=== PATIENT | female | born 1990 | race Caucasian/White ===

== ENCOUNTER → 2018-10-03 | Outpatient (REF) | payer OTHER ==
[~2018-10-03] MED LIST: ACET1TAB16; ACET500L PO; ANUS2.5C2 PR; DOCU5LIQ PO; IBUP600T; IBUP600T26 PO; MAPA500T17 PO
== END ==
LOC: M LAB REF 13:45
PROVIDERS: ATTEND Advanced Practice Midwife
DX: Z12.4 Encounter for screening for malignant neoplasm of cervix (principal)

== ENCOUNTER → 2018-11-12 | Outpatient (CLI) | payer OTHER ==
[2018-11-12 13:36] LABS: BASO % 0.4 % (0.0-1.0); EOS # 0.1 10^3/uL (0.0-0.50); EOS % 1.6 % (0.0-3.0); HEMATOCRIT 37.4 % (36.0-47.0); HEMOGLOBIN 12.6 g/dl (12.0-15.5); LYMPH # 2.2 10^3/uL (1.5-6.5); MEAN CORPUSCULAR HGB CONC 33.7 g/dl (32.0-36.5); MONO # 0.8 10^3/uL (0.0-0.8); MONO % 9.9 % (0.0-5.0); NEUTROPHILS # 5.2 10^3/uL (1.8-7.7); NEUTROPHILS % 61.6 % (36.0-66.0); PLATELET COUNT, AUTOMATED 346 10^3/uL (150-450); RED BLOOD COUNT 4.35 10^6/uL (4.00-5.40); WHITE BLOOD COUNT 8.4 10^3/uL (4.0-10.0)
[2018-11-12 14:41] LABS: HEPATITIS C VIRUS ABY INDEX 0.1 INDEX (<0.8); HIV 1&2 SCREEN CENTAUR NEGATIVE (NEGATIVE); RUBELLA IgG QUALITATIVE IMMUNE (IMMUNE)
[2018-11-12 16:41] LABS: CHLAMYDIA DNA AMPLIFICATION NEGATIVE (NEGATIVE); GC DNA AMPLIFICATION NEGATIVE (NEGATIVE)
== END ==
LOC: M SMT 11:58
PROVIDERS: ATTEND Advanced Practice Midwife
DX: Z34.81 Encounter for supervision of other normal pregnancy, first trimester (principal); Z3A.00 Weeks of gestation of pregnancy not specified

== ENCOUNTER → 2018-12-14 | Outpatient (CLI) | payer OTHER | LOC: M LAB 11:38 | PROVIDERS: ATTEND Advanced Practice Midwife | DX: Z34.81 Encounter for supervision of other normal pregnancy, first trimester (principal); Z36.89 Encounter for other specified antenatal screening ==

== ENCOUNTER → 2019-02-16 | Outpatient (CLI) | payer OTHER ==
--- NOTE | 2019-02-17 06:02 | REP ---
Clinical: Anatomical evaluation. Comparison: None . Findings: Examination demonstrates a single live intrauterine in transverse (head to maternal right) presentation. motion is identified by technologist. Placenta is noted anterior and grade zero without evidence for placenta previa or abruption. Amniotic fluid volume is normal. Cervix measures 3.7 cm in length and appears closed. No evidence for nuchal cord. Gestational age by LMP 20 weeks 4 days with RENE 07/02/2019 . Gestational age by current measurements 20 weeks 3 days with RENE 07/03/2019 . FHR equals 149 beats per minute. BPD 4.9 cm 21 weeks 0 days HC 18.1 cm 20 weeks 3 days AC 15.3 cm 20 weeks 3 days FL 3.3 cm 20 weeks 2 days HL 3.1 cm 20 weeks 2 days HC/AC ratio 1.18 Estimated weight 352 grams ( 40th percentile). Anatomical assessment demonstrates normal structures including cranium, choroid plexus, cavum, cerebellum/posterior fossa, facial features, lungs, four-chamber heart/right ventricular outflow tract, diaphragm, stomach, cord insertion/three-vessel cord, kidneys/bladder, and extremities. Impression: Single live intrauterine in transverse lie demonstrating appropriate interval growth. Limited evaluation of the left cardiac ventricular outflow tract and spine. Remainder of the anatomical assessment is complete and normal. Electronically Signed by Alvin Andrade MD 02/17/2019 05:53 A
== END ==
LOC: M RAD 11:16
PROVIDERS: ATTEND Advanced Practice Midwife
DX: Z34.82 Encounter for supervision of other normal pregnancy, second trimester (principal)

== ENCOUNTER → 2019-04-03 | Outpatient (CLI) | payer OTHER ==
--- NOTE | 2019-04-03 12:28 | REP ---
Clinical: Anatomical evaluation. Comparison: 02/16/2019 . Findings: Examination demonstrates a single live intrauterine in variable presentation. motion is identified by technologist. Placenta is noted anterior and grade I I without evidence for placenta previa or abruption. Amniotic fluid volume is normal. Cervix measures 4.1 cm in length and appears closed. No evidence for nuchal cord. Gestational age by LMP 27 weeks 1 day with RENE 07/02/2019 . Gestational age by current measurements 27 weeks 3 days with RENE 06/30/2019 . FHR equals 137 beats per minute. Estimated weight 1030 grams ( 43rd percentile). Amniotic fluid index: 18.9 cm (9.5 - 22.6) Anatomical assessment demonstrates normal structures including cranium, choroid plexus, cavum, cerebellum/posterior fossa, facial features, lungs, four-chamber heart/ventricular outflow tracts, diaphragm, stomach, cord insertion/three-vessel cord, kidneys/bladder, spine, and extremities. Impression: Single live intrauterine in variable presentation demonstrating appropriate interval growth. 2. Anatomical assessment is complete and normal. Electronically Signed by Alvin Andrade MD 04/03/2019 12:20 P
== END ==
LOC: M RAD 10:49
PROVIDERS: ATTEND Advanced Practice Midwife
DX: Z34.92 Encounter for supervision of normal pregnancy, unspecified, second trimester (principal)

== ENCOUNTER → 2019-04-09 | Outpatient (CLI) | payer BC ==
[2019-04-09 13:19] LABS: HEMATOCRIT 34.9 % (36.0-47.0); MEAN CORPUSCULAR HEMOGLOBIN 28.6 pg (27.0-33.0); MEAN CORPUSCULAR HGB CONC 31.5 g/dl (32.0-36.5); MEAN CORPUSCULAR VOLUME 90.6 fl (80.0-96.0); PLATELET COUNT, AUTOMATED 252 10^3/uL (150-450); RED BLOOD COUNT 3.85 10^6/uL (4.00-5.40); WHITE BLOOD COUNT 10.3 10^3/uL (4.0-10.0)
[2019-04-11 00:08] LABS: ANTI PARVO VIRUS LEVEL IgM 0.1 index (0.0-0.8)
== END ==
LOC: M LAB 11:07
PROVIDERS: ATTEND Advanced Practice Midwife
DX: Z34.92 Encounter for supervision of normal pregnancy, unspecified, second trimester (principal); Z3A.00 Weeks of gestation of pregnancy not specified

== ENCOUNTER → 2019-04-27 | Outpatient (CLI) | payer BC | LOC: M LAB 07:35 | PROVIDERS: ATTEND Advanced Practice Midwife | DX: O99.810 Abnormal glucose complicating pregnancy (principal) ==

== ENCOUNTER → 2019-06-09 | Outpatient (REF) | payer BC | LOC: M SFHCWAGY 11:58 | PROVIDERS: ATTEND Advanced Practice Midwife | DX: Z36.85 Encounter for antenatal screening for Streptococcus B (principal) ==

== ENCOUNTER → 2019-06-25 | Outpatient (CLI) | payer BC ==
[2019-06-25 17:33] LABS: HEMATOCRIT 35.4 % (36.0-47.0); HEMOGLOBIN 11.4 g/dl (12.0-15.5); MEAN CORPUSCULAR HEMOGLOBIN 27.9 pg (27.0-33.0); MEAN CORPUSCULAR HGB CONC 32.2 g/dl (32.0-36.5); MEAN CORPUSCULAR VOLUME 86.8 fl (80.0-96.0); PLATELET COUNT, AUTOMATED 217 10^3/uL (150-450); RED BLOOD COUNT 4.08 10^6/uL (4.00-5.40); WHITE BLOOD COUNT 11.7 10^3/uL (4.0-10.0)
[2019-06-25 17:54] LABS: TOTAL PROTEIN,RANDOM URINE 34.9 MG/DL (0.0-12.0)
[2019-06-25 18:00] LABS: ALT/SGPT 14 U/L (12-78); BILIRUBIN,TOTAL 0.2 MG/DL (0.2-1.0); CREATININE FOR GFR 0.68 MG/DL (0.55-1.30); GLOMERULAR FILTRATION RATE > 60.0 (>60); LDH LACTATE DEHYDROGENASE 178 U/L (84-246); URIC ACID 4.2 MG/DL (2.6-6.0)
== END ==
LOC: M LAB 15:46
PROVIDERS: ATTEND Advanced Practice Midwife
DX: O16.3 Unspecified maternal hypertension, third trimester (principal)

== ENCOUNTER 2019-06-26 13:46 | Inpatient (IN) | payer BC ==
[~2019-06-26] VITALS: Ht 157.5 cm; Wt 77.7 kg
[2019-06-26] MEDS ORDERED: LR 1,000 ML IV SCH (14:11)
[2019-06-26] MEDS ORDERED: LACTATED RINGER'S 1000 ML IV STA (14:11)
[2019-06-26 15:13] LABS: HEMATOCRIT 33.3 % (36.0-47.0); HEMOGLOBIN 11.2 g/dl (12.0-15.5); MEAN CORPUSCULAR HEMOGLOBIN 28.8 pg (27.0-33.0); MEAN CORPUSCULAR HGB CONC 33.6 g/dl (32.0-36.5); MEAN CORPUSCULAR VOLUME 85.6 fl (80.0-96.0); PLATELET COUNT, AUTOMATED 234 10^3/uL (150-450); RED BLOOD COUNT 3.89 10^6/uL (4.00-5.40); WHITE BLOOD COUNT 12.1 10^3/uL (4.0-10.0)
[2019-06-26 15:39] LABS: ALT/SGPT 14 U/L (12-78); BILIRUBIN,TOTAL 0.2 MG/DL (0.2-1.0); CREATININE FOR GFR 0.67 MG/DL (0.55-1.30); GLOMERULAR FILTRATION RATE > 60.0 (>60); LDH LACTATE DEHYDROGENASE 238 U/L (84-246); URIC ACID 4.3 MG/DL (2.6-6.0)
[2019-06-26] MEDS ORDERED: miSOPROStol 50 MCG 1/2 TAB (S0191) PO ONE (16:30)
--- NOTE | 2019-06-26 16:40 | HPEPDOC ---
Obstetrical History & Physical General Date of Admission Jun 26, 2019 at 13:46 Primary Care Physician: JESSICA BARAHONA CNM Antepartum Course Diagnos(e)s GHTN Past Medical History Allergies Coded Allergies: No Known Allergies (Verified , 11/28/07) Medications Scheduled Hydrocortisone (Anusol-Hc) 2.5 % Cre, 2.5 % ID Q4H for DISCOMFORT Ibuprofen (Motrin, Advil) 600 Mg Tab, 600 MG PO Q6 for MODERATE PAIN (PS 5-7) Scheduled PRN Acetaminophen (Tylenol) 500 Mg Tab, 500 MG PO Q6 PRN for MILD PAIN (PS 1-4) Docusate Sodium (Colace Liquid) 100 Mg/10 Ml Liqd, 100 MG PO once a day PRN for BOWEL CARE/CONSTIPATION Physical Examination Physical Examination GENERAL: Alert and oriented times three. BREAST: . ABDOMEN: Gravid and non-tender to touch. FETUS: Is vertex (VTX) by sterile vaginal examination (SVE), fetus is vertex (VTX) by Bertin. HEART RATE: Regular rate and rhythm. LUNGS: Clear to auscultation (CTA). EXTREMITIES: No edema. No clonus. Deep tendon reflexes (DTRs) + . Laboratory Data 24H LABS Laboratory Tests 2 06/26/19 14:01: Serology Scanned Report Hepatitis B Testing 06/26/19 15:00: Nucleated Red Blood Cells % (auto) 0.0, Glomerular Filtration Rate > 60.0, Uric Acid 4.3, Total Bilirubin 0.2, Aspartate Amino Transf (AST/SGOT) 22, Alanine Aminotransferase (ALT/SGPT) 14, Lactate Dehydrogenase 238, Syphilis Serology NONREACTIVE CBC/BMP Laboratory Tests 06/26/19 15:00 Assessment/Plan Assessment IUP at 39 weeks gestation TN Category I FHR tracing GBS negative Plan Admit and orient. Airport Guide and consent. Diet: . Group B Streptococcus (GBS) [negative]. Labs and intravenous (IV) per unit protocol. Counseled on Pitocin and induction of labor (IOL). Lactated Ringers (LR): Bolus mL, then at mL/hr. Anticipate [normal spontaneous delivery ()]. C-S as appropriate. JESSICA BARAHONA CNM Jun 26, 2019 16:40
[2019-06-26 19:03] VITALS: BP 129/87
--- NOTE | 2019-06-26 20:11 | HPEPDOC ---
Obstetrical History & Physical General Date of Admission Jun 26, 2019 at 13:46 Primary Care Physician: JESSICA BARAHONA CNM History of Present Illness Patient is a 29-year-old female who is a at 39.1 weeks gestation with an RENE of 07/02/19 based off of her first trimester of ultrasound. She initiated care in her first trimester with [facility]. Her has been uncomplicated until 39 weeks when she was diagnosed with GHTN. She presents to L&D for IOL for GHTN. She denies preeclamptic symptoms. She denies leaking of fluid or vaginal bleeding. Reports active movement and occasional contractions. Chief Complaint: Gestational Hypertension, Induction of labor Information Provided By: Patient Age: 29 : 2 Term: 1 Pre-term: 0 Abortions: 0 Livin Care Care: Good Care Dating Final EDC: Jul 02, 2019 Final EDC by: 1st trimester (US) EGA at Admission: 39.1 Antepartum Course Diagnos(e)s GHTN Height (inches): 62 Past Medical History Past Obstetrical History : Past Obstetrical History: Primgravida Gestation: 40.4 Type of Delivery: Spontaneous Vaginal Del. 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 pertinent history Past Medical History Medical History Asthma Surgical History: Tonsilectomy Family History Significant Family History: Other (anxiety, Crohn's, depression, bipolar) Social History Marital Status: Family situation: Spouse/partner home Psychosocial History: No pertinent psych hx * Smoker: non-smoker Alcohol: Denies Drugs: denies Abuse Violence Screening Have you been hit/kicked/slapp: No Have you been sexually assault: No Imunizations Tdap status: current Allergies Coded Allergies: No Known Allergies (Verified , 11/28/07) Medications Scheduled Hydrocortisone (Anusol-Hc) 2.5 % Cre, 2.5 % [place] Q4H for DISCOMFORT Ibuprofen (Motrin, Advil) 600 Mg Tab, 600 MG PO Q6 for MODERATE PAIN (PS 5-7) Scheduled PRN Acetaminophen (Tylenol) 500 Mg Tab, 500 MG PO Q6 PRN for MILD PAIN (PS 1-4) Docusate Sodium (Colace Liquid) 100 Mg/10 Ml Liqd, 100 MG PO once a day PRN for BOWEL CARE/CONSTIPATION Physical Examination Physical Examination GENERAL: Alert and oriented times three. BREAST: . ABDOMEN: Gravid and non-tender to touch. FETUS: Is vertex (VTX) by sterile vaginal examination (SVE), fetus is vertex (VTX) by Bertin. HEART RATE: Regular rate and rhythm. LUNGS: Clear to auscultation (CTA). EXTREMITIES: No edema. No clonus. Deep tendon reflexes (DTRs) + 2. Vital Signs/I&O Vital Signs Date Time Temp Pulse Resp B/P (MAP) Pulse Ox O2 Delivery O2 Flow Rate FiO2 06/26/19 19:03 97.3 102 16 129/87 (101) Laboratory Data 24H LABS Laboratory Tests 2 06/26/19 14:01: Serology Scanned Report Hepatitis B Testing 06/26/19 15:00: Nucleated Red Blood Cells % (auto) 0.0, Glomerular Filtration Rate > 60.0, Uric Acid 4.3, Total Bilirubin 0.2, Aspartate Amino Transf (AST/SGOT) 22, Alanine Aminotransferase (ALT/SGPT) 14, Lactate Dehydrogenase 238, Syphilis Serology NONREACTIVE CBC/BMP Laboratory Tests 06/26/19 15:00 Urine Culture: No Growth Pertinent Laboratoy Data Blood Type: A+ RBC Antibody Screen: Negative HIV: Negative Hepatitis B: Negative Hepatitis C: Negative Rapid Plasma Reagin: Nonreactive Rubella: Immune Chlamydia/Gonorrhea: Negative Group B Streptococcus: Negative Glucose Tolerance Test: 137 Vaginal Examination Dilation: 2cm Effacement: other (75%) Station: -2 Cervical Consistency: Soft Cervical Position: Anterior Presentation: Cephalic presentation Position: Vertex (occiput) Assessment Heart Rate (FHR): 140 Variability: Moderate Accelerations: Positive Decelerations: None Tocometer Contractions: Yes Frequency: other (2 to 7 minutes) Multi-drug resistant Organism: No history of MDRO Assessment/Plan Assessment IUP at 39.1 weeks gestation GHTN GBS negative Category I FHR tracing. Plan Admit to L&D per recommendation of Dr. Burks. ZoraidaOB ad ori Diet: regular then clears once she is switched to IV Pitocin. Group B Streptococcus (GBS) negative. Labs and intravenous (IV) per unit protocol. Counseled on Cytotec, bowman bulb and Pitocin for induction of labor. Anesthesia consult per patient's request. Lactated Ringers (LR): Bolus 800 mL, then at 125 mL/hr. Anticipate cervical ripening and . . C-S as appropriate. JESSICA BARAHONA CNM Jun 26, 2019 20:11
[2019-06-26] MEDS ORDERED: OXYTOCIN DRIP 30 UNITS in IV 1 EA IV SCH (21:00)
[2019-06-26] MEDS ORDERED: BUTORPHANOL 2 MG/ML INJ (J0595) IV ONE (22:15)
[2019-06-26] MEDS ORDERED: PROMETHAZINE INJ 25 MG/ML VIAL (J2550) IV ONE (22:15)
[2019-06-27] MEDS ORDERED: OXYTOCIN DRIP 30 UNITS in IV 1 EA IV SCH (00:38)
[2019-06-27] MEDS ORDERED: DOCUSATE SODIUM 100 MG CAP PO PRN (00:45)
[2019-06-27] MEDS ORDERED: DIBUCAINE 1% OINTMENT 30GM TOP PRN (00:45)
[2019-06-27] MEDS ORDERED: ACETAMINOPHEN TAB 650MG DOSE (2X325MG) PO PRN (00:45)
[2019-06-27] MEDS ORDERED: RHOGAM 300 MCG (1500 IU) INJ (J2790) IM SCH (00:45)
[2019-06-27] MEDS ORDERED: ANUSOL HC CREAM 30GM TOP PRN (00:45)
[2019-06-27] MEDS ORDERED: ACETAMINOPHEN 500 MG TAB PO PRN (00:45)
[2019-06-27] MEDS ORDERED: METHYLERGONOVINE MALEATE 0.2 MG TAB PO PRN (00:45)
[2019-06-27] MEDS ORDERED: IBUPROFEN 600 MG TAB PO PRN (00:45)
[2019-06-27] MEDS ORDERED: MEASLES,MUMPS,RUBELLA VACCINE INJ (MMR-II) (90707) SC SCH (00:45)
--- NOTE | 2019-06-27 00:45 | DNPDOC ---
[facility] Delivery Note Delivery Note DATE OF DELIVERY: 06/27/2019 at 0016 PREDELIVERY DIAGNOSIS: 39-1/7 weeks' gestation and labor. POST DELIVERY DIAGNOSIS: Delivered. PROCEDURE: Spontaneous vaginal delivery. PEN TESTER: Jessica Flores CNM, NOÉ ANESTHESIA: none ESTIMATED BLOOD LOSS: 200 mL. FINDINGS: 6 pounds 15 oz; 3150 grams; male infant, Score 8/9, GHTN. DELIVERY SUMMARY: Patient is a 29-year-old female who is now a who presented to L&D for and IOL for GHTN. She received 1 dose of cytotec and IV Pitocin for induction of labor. She used a dose of Stadol and Phenergan for pain management. The patient spontaneously ruptured at 2201 to a moderate amount of clear fluid and progressed to fully dilated at 2355. She pushed to a living male in the OA position with restitution to ROT at 0016. The anterior shoulder delivered with ease and the corpus immediately followed. The baby was placed on the maternal abdomen active and crying. The cord was clamped x2 after pulsation ceased and cut by the FOB. A 3-vessel cord was noted. The placenta delivered spontaneously and intact at 0021. Uterine hemostasis was achieved via rapid infusion of IV Pitocin and fundal massage. The vagina, perineum, and cervix was inspected and found to be intact. Both mom and baby are in stable condition. All counts of instruments and sponges are correct. JESSICA FLORES CNM Jun 27, 2019 00:45
[2019-06-27 03:15] VITALS: BP 109/68
[2019-06-27 06:00] VITALS: BP 122/68
[2019-06-27] MEDS: PRENATAL VITAMINS CHEWABLE TABLET PO SCH (08:27)
[2019-06-27] MEDS: IBUPROFEN 800 MG TAB PO PRN (08:28)
[2019-06-27 10:00] VITALS: BP 121/77
[2019-06-27 18:00] VITALS: BP 118/60
[2019-06-28 06:00] VITALS: BP 136/81
--- NOTE | 2019-06-28 07:56 | IPNPDOC ---
Progress Note Date of Service: Jun 28, 2019 Day#: 1 Progress Note SUBJECT: Doing well without complaints. Ambulating, voiding and pain is well-c ontrolled. Reports minimal lochia. OBJECTIVE: VITAL SIGNS: Within normal limits, afebrile. Alert and oriented times three. Abdomen: Fundus firm at U-2. Soft, NTTP. Ext: neg calf tenderness. ASSESSMENT: day #1 status post normal spontaneous vaginal delivery. Recovering in stable condition. PLAN: 1. Continue routine care 2. Discharge plans for tomorrow VS, I&O, 24H, Fishbone Vital Signs/I&O Vital Signs Date Time Temp Pulse Resp B/P (MAP) Pulse Ox O2 Delivery O2 Flow Rate FiO2 06/28/19 06:00 97.9 77 18 136/81 (99) 06/27/19 18:00 Room Air IAN VIEIRA MD. Jun 28, 2019 07:56
[2019-06-28] MEDS: PRENATAL VITAMINS CHEWABLE TABLET PO SCH (10:44)
[2019-06-28] MEDS: IBUPROFEN 800 MG TAB PO PRN (10:44)
== END 2019-06-28 11:30 | disposition home or self-care (01) | DRG 560 ==
LOC: M LDI 13:46 → M OBS 06-27 02:20
PROVIDERS: ADMIT Advanced Practice Midwife; ATTEND Advanced Practice Midwife
PROC: 3E0P7GC Introduction of Other Therapeutic Substance into Female Reproductive, Via Natural or Artificial Opening (ICD-10-PCS; 2019-06-26)
PROC: 10E0XZZ Delivery of Products of Conception, External Approach (ICD-10-PCS; principal; 2019-06-27)
DX: O13.4 Gestational [pregnancy-induced] hypertension without significant proteinuria, complicating childbirth (principal); Z3A.39 39 weeks gestation of pregnancy; Z37.0 Single live birth

== ENCOUNTER → 2020-07-27 | Outpatient (REF) | payer BC | LOC: M PLALAB 10:01 | PROVIDERS: ATTEND Advanced Practice Midwife | DX: Z36.89 Encounter for other specified antenatal screening (principal) ==

== ENCOUNTER → 2020-07-29 | Outpatient (CLI) | payer BC | LOC: M LAB 16:33 | PROVIDERS: ATTEND Advanced Practice Midwife | DX: Z34.90 Encounter for supervision of normal pregnancy, unspecified, unspecified trimester (principal) ==

== ENCOUNTER → 2020-09-07 | Outpatient (CLI) | payer BC | LOC: M PLALAB 10:03 | PROVIDERS: ATTEND Advanced Practice Midwife | DX: Z34.81 Encounter for supervision of other normal pregnancy, first trimester (principal) ==

== ENCOUNTER → 2020-09-16 | Outpatient (REF) | payer BC ==
[2020-09-16 17:36] LABS: HEMATOCRIT 36.2 % (36.0-47.0); HEMOGLOBIN 12.2 g/dl (12.0-15.5); MEAN CORPUSCULAR HEMOGLOBIN 29.3 pg (27.0-33.0); MEAN CORPUSCULAR HGB CONC 33.7 g/dl (32.0-36.5); PLATELET COUNT, AUTOMATED 282 10^3/uL (150-450); RED BLOOD COUNT 4.16 10^6/uL (4.00-5.40); WHITE BLOOD COUNT 9.9 10^3/uL (4.0-10.0)
[2020-09-16 18:56] LABS: HEPATITIS C VIRUS ABY INDEX < 0.0 INDEX (<0.8); HIV 1&2 SCREEN CENTAUR NEGATIVE (NEGATIVE)
== END ==
LOC: M PLALAB 14:11
PROVIDERS: ATTEND Advanced Practice Midwife
DX: Z36.89 Encounter for other specified antenatal screening (principal)

== ENCOUNTER → 2020-10-14 | Outpatient (REF) | payer BC | LOC: M SFHCWAGY 13:03 | PROVIDERS: ATTEND Advanced Practice Midwife | DX: Z36.89 Encounter for other specified antenatal screening (principal) ==

== ENCOUNTER → 2020-11-18 | Outpatient (CLI) | payer BC ==
--- NOTE | 2020-11-18 09:40 | REP ---
INDICATION: ANATOMY. COMPARISON: None. TECHNIQUE: Transabdominal scanning FINDINGS: Multiple ultrasonographic images of the gravid uterus shows a single living intrauterine gestation in the cephalic presentation. Doppler interrogation of the heart shows a heart rate of 149 beats per minute. The placenta is anterior and not low-lying. The cervix measures 3.9 cm in length and is closed. The subjective amniotic fluid volume is within normal limits. BPD: 5 cm 21 weeks 0 days HC: 19.2 cm 21 weeks 3 days AC: 16.6 cm 21 weeks 4 days FL: 3.7 cm 21 weeks 4 days The estimated weight is 434 g which is at the 44th percentile for a 21 week 4 day gestational age. anatomical structures seen to be unremarkable are as follows: Thalami, cavum septum pellucidum, cerebellum, cisterna magna, cerebral ventricles, spine, kidneys, urinary bladder, cord insertion, three-vessel umbilical cord, upper lip, upper and lower extremities, four-chamber heart, and ventricular outflow tracts IMPRESSION: Single living intrauterine gestation as described above with an estimated gestational age of 21 weeks 3 days via composite criteria and an estimated date of delivery of 03/28/2021 by today's exam. No anomalies were detected. <Electronically signed by Trevon Zhu > 11/18/20 0937
== END ==
LOC: M WHC 08:18
PROVIDERS: ATTEND Advanced Practice Midwife
DX: Z34.82 Encounter for supervision of other normal pregnancy, second trimester (principal); Z3A.21 21 weeks gestation of pregnancy

== ENCOUNTER → 2021-01-09 | Outpatient (CLI) | payer BC ==
[2021-01-09 14:04] LABS: HEMATOCRIT 34.6 % (36.0-47.0); HEMOGLOBIN 11.2 g/dl (12.0-15.5); MEAN CORPUSCULAR HEMOGLOBIN 28.7 pg (27.0-33.0); MEAN CORPUSCULAR HGB CONC 32.4 g/dl (32.0-36.5); MEAN CORPUSCULAR VOLUME 88.7 fl (80.0-96.0); PLATELET COUNT, AUTOMATED 241 10^3/uL (150-450); WHITE BLOOD COUNT 10.9 10^3/uL (4.0-10.0)
== END ==
LOC: M LAB 12:10
PROVIDERS: ATTEND Advanced Practice Midwife
DX: Z34.82 Encounter for supervision of other normal pregnancy, second trimester (principal)

== ENCOUNTER → 2021-01-30 | Outpatient (CLI) | payer BC | LOC: M LAB 08:48 | PROVIDERS: ATTEND Advanced Practice Midwife | DX: Z36.89 Encounter for other specified antenatal screening (principal); O99.810 Abnormal glucose complicating pregnancy ==

== ENCOUNTER 2021-02-28 12:25 | Outpatient (CLI) | payer BC ==
[~2021-02-28] VITALS: Ht 157.5 cm; Wt 100.2 kg
[2021-02-28 12:21] VITALS: BP 97/62
[~2021-02-28 12:25] MED LIST changes: +ACET-683 PO; +ACETAMINOPHEN TAB 650MG DOSE (2X325MG) PO PRN; +ALBUTEROL 90 MCG/ACT 8GM HFA INHALER INH PRN; +ALBUTEROL SULFATE 2.5 MG/0.5 ML INH NEB SOLN INH PRN; +CASIRIVIMAB (REGN10933) 600 MG, IMDEVIMAB (REGN10987) 600 MG in NS 250 ML IV ONE; +CASIRIVIMAB/IMDEVIMAB 1,200 MG in NS 250 ML IV ONE; +COLA100C5 PO; +EPINEPHrine INJ 1 MG/ML 1ML AMP IM PRN; +FERR1TAB8 PO; +NS 1,000 ML IV SCH; +PRENCHW PO; +diphenhydrAMINE 50MG/ML VIAL (J1200) IV PRN; +methylPREDNISolone 125MG 2ML VIAL IV PRN
[2021-02-28 12:51] VITALS: BP 110/68
[2021-02-28 13:25] VITALS: BP 108/78
[2021-02-28 14:26] VITALS: BP 110/80
== END 2021-02-28 14:35 | disposition home or self-care (01) ==
LOC: M 4MAIN 12:25 → M OPCLI4PR 12:25 → M OPCLI4 12:55 → M OPCLI4PR 14:35
PROVIDERS: ATTEND Internal Medicine
DX: U07.1 COVID-19 (principal)

== ENCOUNTER 2021-03-20 19:59 | Inpatient (IN) | payer BC ==
[~2021-03-20] VITALS: Ht 157.5 cm; Wt 74.2 kg
[~2021-03-20 19:59] MED LIST changes: -ACETAMINOPHEN TAB 650MG DOSE (2X325MG) PO PRN; -ALBUTEROL 90 MCG/ACT 8GM HFA INHALER INH PRN; -ALBUTEROL SULFATE 2.5 MG/0.5 ML INH NEB SOLN INH PRN; -CASIRIVIMAB (REGN10933) 600 MG, IMDEVIMAB (REGN10987) 600 MG in NS 250 ML IV ONE; -CASIRIVIMAB/IMDEVIMAB 1,200 MG in NS 250 ML IV ONE; -EPINEPHrine INJ 1 MG/ML 1ML AMP IM PRN; -NS 1,000 ML IV SCH; -diphenhydrAMINE 50MG/ML VIAL (J1200) IV PRN; -methylPREDNISolone 125MG 2ML VIAL IV PRN
--- OUTSIDE RECORDS SUMMARY | 2021-03-20 20:03 | CCD ---
Author Author [facility] Organization [facility] Address Unknown Phone Unavailable Support Name Relationship Address Phone GINGER AMAYA Next Of Kin [address] [place] [address] [employer] Next Of Kin [address] [place] [address] RUBENS CASTILLO Next Of Kin [address] [place] [address] UE Next Of Kin Unknown Unavailable ST Next Of Kin Unknown Unavailable YANIQUE VILLALOBOS Next Of Kin [address] [place] [address] KLAUS VILLALOBOS Next Of Kin [address] [place] [address] AMAYA MILES ECON [address] [place] [address] Unavailable Re-disclosure Warning The records that you are about to access may contain information from federally-assisted alcohol or drug abuse programs. If such information is present, then the following federally mandated warning applies: This information has been disclosed to you from records protected by federal confidentiality rules (42 CFR part 2). The federal rules prohibit you from making any further disclosure of this information unless further disclosure is expressly permitted by the written consent of the person to whom it pertains or as otherwise permitted by 42 CFR part 2. A general authorization for the release of medical or other information is NOT sufficient for this purpose. The Federal rules restrict any use of the information to criminally investigate or prosecute any alcohol or drug abuse patient.The records that you are about to access may contain highly sensitive health information, the redisclosure of which is protected by Article 27-F of the [facility] Public Health law. If you continue you may have access to information: Regarding HIV / AIDS; Provided by facilities licensed or operated by the [facility] Office of Mental Health; or Provided by the [facility] Office for People With Developmental Disabilities. If such information is present, then the following [facility] mandated warning applies: This information has been disclosed to you from confidential records which are protected by state law. State law prohibits you from making any further disclosure of this information without the specific written consent of the person to whom it pertains, or as otherwise permitted by law. Any unauthorized further disclosure in violation of state law may result in a fine or skilled nursing sentence or both. A general authorization for the release of medical or other information is NOT sufficient authorization for further disc losure. Medications No Information Insurance Providers Payer name Policy type / Coverage type Policy ID Covered libertarian ID Covered libertarian's relationship to najera Policy Najera Plan Information [employer] [place]/307 [id number] SP [id number] [employer] [place]/307 [id number] SP [id number] [place] [place] 302/307 [id number] SP [id number] [facility] [id number] SP [id number] [facility] [id number] SP [id number] [employer] S [id number] C CUB [id number] [employer] P [id number] C CUB [id number] [employer] [place] 304/804 [id number] [facility] [facility] 220/720 [id number] SP [id number] MEDICAID [id number] SP [id number] [employer] [place] 302/307 [id number] [employer] [place] 302/307 [id number] [place] -O/P [id number] [employer] -O/P [id number] Problems, Conditions, and Diagnoses No Information Surgeries/Procedures No Information Results No Information Social History No Information
[2021-03-20 20:20] VITALS: BP 119/75
[2021-03-20] MEDS ORDERED: METHYLERGONOVINE MALEATE 0.2 MG/ML VIAL (J2210) IM PRN (20:25)
[2021-03-20] MEDS ORDERED: CARBOPROST TROMETHAMINE 250 MCG/ML AMP IM PRN (20:25)
[2021-03-20] MEDS ORDERED: LIDOCAINE 1% MDV 20ML VIAL INFIL PRN (20:25)
[2021-03-20] MEDS ORDERED: OXYTOCIN DRIP 30 UNITS in IV 1 EA IV PRN (20:25)
[2021-03-20] MEDS ORDERED: TRANEXAMIC ACID INJection 1,000 MG in NS 100 ML IV PRN (20:25)
[2021-03-20] MEDS ORDERED: HOME MED LIST COMPLETE! XX SCH (21:00)
[2021-03-20] MEDS ORDERED: miSOPROStol 50MCG 1/2 TABLET PO ONE (22:45)
[2021-03-20 22:46] LABS: HEMATOCRIT 36.4 % (36.0-47.0); HEMOGLOBIN 11.7 g/dl (12.0-15.5); MEAN CORPUSCULAR HGB CONC 32.1 g/dl (32.0-36.5); MEAN CORPUSCULAR VOLUME 87.1 fl (80.0-96.0); PLATELET COUNT, AUTOMATED 240 10^3/uL (150-450); RED BLOOD COUNT 4.18 10^6/uL (4.00-5.40); WHITE BLOOD COUNT 11.5 10^3/uL (4.0-10.0)
--- NOTE | 2021-03-20 22:52 | HPEPDOC ---
Obstetrical History & Physical General Date of Admission Mar 20, 2021 at 19:59 Primary Care Physician: JESSICA BARAHONA CNM History of Present Illness Nimisha is a 31-year-old female who is a at 39 weeks gestation with an RENE of 03/28/21 based off of her first trimester ultrasound. She initiated care in her first trimester of . Her has been complicated by having Covid in her third trimester and gestational diabetes controlled with diet. She presents to labor and delivery for induction of labor. She reports active movement. She denies vaginal bleeding, leaking of fluid or regular contractions. Chief Complaint: Gestational Hypertension Information Provided By: Patient Age: 31 : 3 Term: 2 Pre-term: 0 Abortions: 0 Livin Care Care: Good Care Dating Final EDC: Mar 27, 2021 Final EDC by: 1st trimester (US) EGA at Admission: 39.0 Antepartum Course Diagnos(e)s A1GDM Height (inches): 62 Pre- weight (lbs.): 155 Admission Weight (lbs.): 163 Change in Weight (lbs.): 8 Past Medical History Past Obstetrical History #1: Past Obstetrical History: Primgravida Date of Delivery: May 09, 2013 Gestation: 40.4 Type of Delivery: Spontaneous Vaginal Del. Sex of : Female (7 lbs 3 oz) Complications: No Past Obstetrical History #2: Past Obstetrical History: Multigravida Date of Delivery: Jun 27, 2019 Gestation: 39.1 Type of Delivery: Spontaneous Vaginal Del. 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 Past Medical History Medical History COVID 19 in March A1GDM Surgical History: Tonsilectomy Family History Significant Family History: Other (Crohn's, bipolar, depression, anxiety, liposarcoma) Social History Marital Status: Family situation: Spouse/partner home Psychosocial History: No pertinent psych hx * Smoker: non-smoker Alcohol: Denies Drugs: denies Abuse Violence Screening Have you been hit/kicked/slapp: No Have you been sexually assault: No Allergies Coded Allergies: No Known Allergies (Verified , 11/28/07) Medications Scheduled Ferrous Sulfate (Ferrous Sulfate) 325 Mg Tablet, 325 MG PO DAILY Pnv No.118/Iron Fumarate/FA ( 19 Chewable Tablet) 1 Each Tab.chew, 1 TAB PO DAILY Physical Examination Physical Examination GENERAL: Alert and oriented times three. BREAST: . ABDOMEN: Gravid and non-tender to touch. FETUS: Is vertex (VTX) by sterile vaginal examination (SVE), fetus is vertex (VTX) by Bertin. HEART RATE: Regular rate and rhythm. LUNGS: Clear to auscultation (CTA). EXTREMITIES: No edema. No clonus. Deep tendon reflexes (DTRs) + . Vital Signs/I&O Vital Signs Date Time Temp Pulse Resp B/P (MAP) Pulse Ox O2 Delivery O2 Flow Rate FiO2 03/20/21 20:20 98.5 99 18 119/75 (90) Laboratory Data 24H LABS Laboratory Tests 2 03/20/21 20:07: Serology Scanned Report Hepatitis B Testing 03/20/21 22:26: Nucleated Red Blood Cells % (auto) 0.0 CBC/BMP Laboratory Tests 03/20/21 22:26 Urine Culture: No Growth Pertinent Laboratoy Data Blood Type: A+ RBC Antibody Screen: Negative HIV: Negative Hepatitis B: Negative Hepatitis C: Negative Rapid Plasma Reagin: Nonreactive Rubella: Immune Chlamydia/Gonorrhea: Negative Group B Streptococcus: Negative Glucose Tolerance Test: 143 Vaginal Examination Dilation: 3 cm Effacement: 50% Station: -2 Cervical Consistency: Soft Cervical Position: Middle Presentation: Cephalic presentation Assessment Heart Rate (FHR): 135 Variability: Moderate Accelerations: Positive Decelerations: None Tocometer Contractions: Yes Frequency: irregular Assessment/Plan Assessment IUP at 39 weeks gestation A1GDM induction of labor GBS negative Category I FHR tracing Plan Admit to labor and delivery. OOB ad ori. Diet: regular now then clears after. Group B Streptococcus (GBS) negative. Labs and intravenous (IV) per unit protocol. Counseled on Cytotec and IV Pitocin for induction of labor (IOL). Start with Cytotec as ordered. LR at 125 cc/hour to keep IV patent due to difficulty with IV placement. Anticipate cervical ripening and vaginal delivery. C-S as appropriate. JESSICA BARAHONA CNM Mar 20, 2021 22:52
[2021-03-20 22:58] VITALS: BP 122/71
[2021-03-21] VITALS (23 sets, daily range): BP systolic 98–135; BP diastolic 55–82
[2021-03-21] MEDS ORDERED: OXYTOCIN 30 UNITS IN 0.9% NaCl 500ML IV BAG (J2590) As Ordered ONE (03:42)
[2021-03-21] MEDS: LR 1,000 ML IV SCH ×2 (04:45→05:29)
[2021-03-21] MEDS: OXYTOCIN DRIP 30 UNITS in IV 1 EA IV SCH ×2 (05:25→05:28)
[2021-03-21] MEDS ORDERED: PROMETHAZINE INJ 25 MG/ML VIAL (J2550) IV ONE (07:35)
[2021-03-21] MEDS ORDERED: BUTORPHANOL 2 MG/ML INJ (J0595) IV ONE (07:35)
--- NOTE | 2021-03-21 07:35 | IPNPDOC ---
Obstetrical Progress Note Date of Service Mar 21, 2021 Subjective breathing through contractions Objective Vital Signs Date Time Temp Pulse Resp B/P (MAP) Pulse Ox O2 Delivery O2 Flow Rate FiO2 03/21/21 06:45 104 18 101/58 (72) 03/21/21 04:36 98.0 Assessment Heart Rate (FHR): 130 Variability: Moderate Accelerations: Positive Decelerations: None Heart Rate Tracing: Category I Tocometer Contractions: Yes Frequency: regular Sterile Vaginal Examination Dilation: 4 cm Effacement (%): other (75%) Station: -2 Cervical Consistency: Soft Cervical Position: Anterior Postion/Presentation: Cephalic presentation Assessment and Plan Age: 31 Weeks & Days 39.1 weeks Status: Reassuring Group B Streptococcus: Negative Anticipate: Vaginal Delivery Additional Comments IV Pitocin at 8 mu/min JESSICA BARAHONA CNM Mar 21, 2021 07:35
--- NOTE | 2021-03-21 12:39 | DNPDOC ---
[facility] Delivery Note Delivery Note DATE OF DELIVERY: 03/21/21 at 1154 PREDELIVERY DIAGNOSIS: 39-1/7 weeks' gestation and induction of labor. POST DELIVERY DIAGNOSIS: Delivered. PROCEDURE: Spontaneous vaginal delivery. ARCH SUPPORT MAKER: Jessica Flores CNM, NOÉ ANESTHESIA: none. ESTIMATED BLOOD LOSS: 250 mL. FINDINGS: 7 pounds 3 ounces; 3250 grams; male , Score 9/9, nuchal cord times 1 loose, A1GDM. DELIVERY SUMMARY: Nimisha is a 31-year-old female who is a who presented for an induction of labor for gestational diabetes. She received 1 dose of Cytotec and IV Pitocin for induction of labor. Nimisha requested IV pain medication. AROM was done at 1126 to a moderate amount of clear fluid. She pushed to alive male with a brow presentation. The baby delivered ROT. A nuchal cord was noted and not reduced. The anterior shoulder delivered with ease and the corpus was delivered via [place]. The baby was placed [id number] active and crying. The cord was clamped x2 after pulsation ceased and cut by the FOB. The placenta delivered spontaneously and intact at 1159. Uterine hemostasis was achieved via rapid infusion of IV Pitocin and fundal massage. The vagina, cervix and perineum was inspected and found to be intact. Mom plans to pump. They are naming him Wen. All counts of instruments and sponges are correct. Both mom and baby are in stable condition. JESSICA FLORES CNM Mar 21, 2021 12:39
[2021-03-21] MEDS ORDERED: IBUPROFEN 600MG TAB PO PRN (12:40)
[2021-03-21] MEDS ORDERED: ACETAMINOPHEN 500 MG TAB PO PRN (12:40)
[2021-03-21] MEDS ORDERED: DIBUCAINE 1% OINTMENT 30GM TOP PRN (12:40)
[2021-03-21] MEDS ORDERED: ACETAMINOPHEN TAB 650MG DOSE (2X325MG) PO PRN (12:40)
[2021-03-21] MEDS ORDERED: RHOGAM 300 MCG (1500 IU) INJ (J2790) IM SCH (12:40)
[2021-03-21] MEDS ORDERED: MEASLES,MUMPS,RUBELLA VACCINE INJ (MMR-II) (90707) SC SCH (12:40)
[2021-03-21] MEDS ORDERED: METHYLERGONOVINE MALEATE 0.2 MG TAB PO PRN (12:40)
[2021-03-21] MEDS ORDERED: MOM 30ML SUSPENSION UDC PO PRN (12:40)
[2021-03-21] MEDS ORDERED: DOCUSATE SODIUM 100MG CAPSULE PO PRN (12:40)
[2021-03-21] MEDS ORDERED: ANUSOL HC CREAM 30GM TOP PRN (12:40)
[2021-03-21] MEDS: IBUPROFEN 800 MG TAB PO PRN (13:08)
[2021-03-22] MEDS: IBUPROFEN 800 MG TAB PO PRN ×2 (01:12→12:02)
[2021-03-22 06:00] VITALS: BP 106/73
[2021-03-22] MEDS ORDERED: PRENATAL VITAMINS CHEWABLE TABLET PO SCH (09:00)
== END 2021-03-22 17:00 | disposition home or self-care (01) | DRG 560 ==
LOC: M LDI 19:59 → M OBS 03-21 15:05
PROVIDERS: ADMIT Advanced Practice Midwife; ATTEND Advanced Practice Midwife
PROC: 10907ZC Drainage of Amniotic Fluid, Therapeutic from Products of Conception, Via Natural or Artificial Opening (ICD-10-PCS; 2021-03-20)
PROC: 10E0XZZ Delivery of Products of Conception, External Approach (ICD-10-PCS; principal; 2021-03-21)
PROC: 3E033VJ Introduction of Other Hormone into Peripheral Vein, Percutaneous Approach (ICD-10-PCS; 2021-03-21)
DX: O24.420 Gestational diabetes mellitus in childbirth, diet controlled (principal); Z3A.39 39 weeks gestation of pregnancy; Z37.0 Single live birth; O69.81X0 Labor and delivery complicated by cord around neck, without compression, not applicable or unspecified; Z86.16 Personal history of COVID-19